=== PATIENT | male | born 1970 | race Caucasian/White ===

== ENCOUNTER 2023-10-30 19:17 | Emergency (ER) | payer OTHER, SELFPAY ==
[2023-10-30 19:34] VITALS: BP 129/82; PULSE 58; RESP 16; TEMP 37.3; O2SAT 97; BMI 33.2
--- NOTE | 2023-10-30 19:39 | ED_ITS ---
HPI - General Adult General Chief complaint: Urogenital-Male Stated complaint: back pain, ? kidneys Time Seen by Provider: 10/30/23 22:05 History of Present Illness HPI narrative: The patient is a 53-year-old male who was a disabled . He says that at some point this afternoon he realized he would pain in his left flank. He also felt that he was having trouble urinating. His pain became intense and he was sweating and extremely uncomfortable. His partner drove him up to the [facility] in [place] where he looked to try to find somebody could help him but they could not find any where to go and so then they drove to the hospital here at of despiration because of his severe pain. Just about as soon as he checked in however his pain started to subside. At the time that I saw him he was not having any ongoing discomfort at all. He was able to urinate here. He has had no fever or chills or vomiting. Related Data Allergies Allergy/AdvReac Type Severity Reaction Status Date / Time bee pollen [bee stings] Allergy Anaphylaxis Verified 10/30/23 19:36 Review of Systems 2 Review of Systems: Yes all other systems are reviewed and are negative [facility] Social History Social History Smoked in Last 30 Days: Yes Use of substances other than those prescribed or required for medical reasons: No Advance Directives: No Advance Directives Information Provided: Yes Do you have a plan to hurt others: No Plan Physical Exam ED Vital Signs: Vital Signs - 24 hr 10/30/23 19:34 10/30/23 21:46 Temperature 99.1 F 97.7 F Pulse Rate 58 66 Respiratory Rate 16 18 Blood Pressure 129/82 140/92 H Pulse Oximetry 97 98 Oxygen Delivery Method Room Air Room Air BMI result Body Mass Index 33.2 Const Other: The patient is awake, alert, pleasant, cooperative. He has not appear in any distress at the moment. HENMT Other: Face is symmetrical. Mucous membranes moist. Eyes Other: Pupils are round equal, conjunctivae are clear Neck Other: Moving his neck easily, no JVD Resp Effort & Inspection: normal respiratory effort Auscultation: clear to auscultation bilaterally Cardio Rate: regular rate Rhythm: regular rhythm Heart sounds: S1 normal heart sound present and S2 normal heart sound present GI Other: Abdomen is soft and nontender General: Yes no CVA tenderness Back/Spine/Pelvis Back: no CVA tenderness Skin Other: Skin is dry and unremarkable Neuro Other: The patient is awake, alert, oriented, appropriate. Cranial nerves are grossly intact. He moves his extremities normally. He is grossly neurologically intact. Extrem Other: No peripheral edema Course Course Course Narrative: This is a rapid medical exam performed by Oscar Geronimo NP: Additional HPI, ROS, PE not included below will be deferred to primary provider. Patient is a 53-year-old male presenting to the ED with complaint of urinary retention and back pain which began today. States only able to urinate small amounts. Pain was 9/[address], currently 6/10. Plan: UA, labs Medical Decision Making Medical Decision Making [facility] Narrative: The patient is a 53-year-old male who comes to the emergency room apparently having earlier had severe left flank pain. He has never had flank pain like that before. No history of kidney stones in the past. His pain resolved spontaneously not long after he checked into the emergency room. Labs has been done that showed a white count of 22,000. The patient had initially implied that he had had difficulty urinating but he was able to void here and a bladder scan did not show any urine retention or bladder distention. The patient was observed. He had no recurrence of pain. He continues to look clinically well. He is afebrile. His urinalysis shows a large amount of blood on dip and 6-10 red cells. Only 0-5 white cells. I suspect he does not have a UTI. His description of the episode sounds very much like an episode of left ureteral colic which spontaneously resolved. He did not wish to have any would imaging studies done in the emergency room because he gets his insurance through the [place] and he is afraid that although he initially went to a [place] [facility] (in [place] where there was no one to be found) he is concerned about generating any additional expense in case the [place] does not cover this emergency room visit. He does not have other insurance. The patient was observed and had no recurrence of symptoms. He will be discharged to contact the [place] tomorrow for additional follow up related to this episode. Lab Data 10/30/23 19:57 10/30/23 19:57 Labs: Lab Results 10/30/23 10/30/23 Range/Units 19:57 22:03 WBC 22.2 H (4.8-10.8) X10*3/uL RBC 4.85 (4.60-5.80) X10*6/uL Hgb 14.6 (14.0-18.0) g/dl Hct 43.2 (42.0-52.0) % MCV 89.1 (80.0-98.0) fL MCH 30.1 (27.0-33.0) pg MCHC 33.8 (31.0-36.0) g/dl RDW 12.9 (11.0-16.0) % Plt Count 274 (160-400) X10*3/uL MPV 10.9 (9.4-12.4) fL Immature Gran % (Auto) 0.5 H (0.0-0.4) % Neut % (Auto) 84.8 H (45-73) % Lymph % (Auto) 8.0 L (20-40) % [place] % (Auto) 5.7 (2-11) % Eos % (Auto) 0.4 (0-4) % Baso % (Auto) 0.6 (0-2) % Lymph # (Auto) 1.8 (1.2-4.9) X10*3/uL [place] # (Auto) 1.3 H (0.1-1.2) X10*3/uL Eos # (Auto) 0.1 (0.0-0.4) X10*3/uL Baso # (Auto) 0.1 (0.0-0.2) X10*3/uL Abs Immat Gran (auto) 0.11 H (0.00-0.03) X10*3/uL Absolute Neuts (auto) 18.9 H (2.0-8.3) x10*3/uL Absolute Nucleated RBC 0.000 (0.0-0.012) X10*3/uL Nucleated RBC % (auto) 0.0 (0.0-0.2) /100WBC Sodium 142 (135-145) mmol/L Potassium 4.2 (3.3-5.1) mmol/L Chloride 108 (96-108) mmol/L Carbon Dioxide 23 (22-29) mmol/L Anion Gap 15 (12-20) BUN 15 (9-16) mg/dL Creatinine 1.02 (0.5-1.4) mg/dL Estim Creat Clear Calc 96.6 Estimated GFR > 60 Random Glucose 115 (60-115) mg/dL Calcium 9.9 (8.4-10.2) mg/dL Total Bilirubin 0.2 (0.0-1.0) mg/dL AST 27 (5-37) U/L ALT 31 (0-40) U/L Alkaline Phosphatase 134 H (39-117) U/L C-Reactive Protein 3.47 H (< or = 0.50) mg/dL Total Protein 7.3 (6.5-8.0) g/dL Albumin 4.3 (3.5-5.0) g/dL Urine Color Yellow Urine Appearance Clear Urine pH 6.5 (5.0-9.0) Ur Specific [place] 1.015 (1.005-1.025) Urine Protein Trace (Neg-Trace) mg/dL Urine Glucose (UA) Negative (Negative) mg/dL Urine Ketones Trace (Negative) mg/dL Urine Blood Large (3+) H (Negative) Urine Nitrite Negative (Negative) Ur Leukocyte Esterase Small (1+) H (Negative) Urine RBC 6-10 H (0-2) /HPF Urine WBC 0-5 (0-5) /HPF Ur Squamous Epith Cells 0-2 (0-2) /HPF Urine Bacteria None Seen (None Seen) Hyaline Casts 3-5 (0-2) /LPF Discharge Plan Discharge Clinical Impression: Acute left flank pain, Hematuria Patient Disposition: Home, Self-Care Instructions: Kidney Stones (ED) Additional Instructions: It seems very likely that you had a kidney stone in your left ureter that must have passed into your bladder. Please contact your regular doctor's office at the [place] in the morning to make an appointment to follow up on this event. In the future I think if you have an acute medical problem in the [place] is not open I think you can call them to get permission to go to a private Hospital. Return to the emergency room if significantly worse. Referrals: [facility] [Provider Group] (Left flank pain presumably a left-sided kidney stone that passed spontaneously) Stand Alone Forms: Work/School Release Print Language: Spanish
[2023-10-30 20:02] LABS: MANUAL DIFF FLAG NO
[2023-10-30 20:03] LABS: Basophils Absolute Auto 0.1 X10*3/uL (0.0-0.2); Basophils Percent Auto 0.6 % (0-2); Eosinophils Absolute Auto 0.1 X10*3/uL (0.0-0.4); Eosinophils Percent Auto 0.4 % (0-4); Hematocrit 43.2 % (42.0-52.0); Hemoglobin 14.6 g/dl (14.0-18.0); Imm Gran Abs Auto 0.11 X10*3/uL (0.00-0.03); Imm Gran Pct Auto 0.5 % (0.0-0.4); Lymphocytes Absolute Auto 1.8 X10*3/uL (1.2-4.9); Mean Corpuscular HGB Conc 33.8 g/dl (31.0-36.0); Mean Corpuscular Hemoglobin 30.1 pg (27.0-33.0); Mean Corpuscular Volume 89.1 fL (80.0-98.0); Mean Platelet Volume 10.9 fL (9.4-12.4); Monocytes Absolute Auto 1.3 X10*3/uL (0.1-1.2); Monocytes Percent Auto 5.7 % (2-11); Neutrophils Absolute Auto 18.9 x10*3/uL (2.0-8.3); Neutrophils Percent Auto 84.8 % (45-73); Platelet Count 274 X10*3/uL (160-400); Red Blood Count 4.85 X10*6/uL (4.60-5.80); Red Cell Distribution Width 12.9 % (11.0-16.0); White Blood Count 22.2 X10*3/uL (4.8-10.8)
[2023-10-30 20:20] LABS: Alanine Aminotransferase 31 U/L (0-40); Albumin Level 4.3 g/dL (3.5-5.0); Alkaline Phosphatase 134 U/L (39-117); Anion Gap 15 (12-20); Aspartate Amino Transferase 27 U/L (5-37); Bilirubin Total 0.2 mg/dL (0.0-1.0); Blood Urea Nitrogen 15 mg/dL (9-16); Calcium 9.9 mg/dL (8.4-10.2); Carbon Dioxide 23 mmol/L (22-29); Chloride 108 mmol/L (96-108); Creatinine Clr Calc Pharmacy 96.6; Estimated Glomerular Filt Rate > 60; Glucose Random 115 mg/dL (60-115); Potassium 4.2 mmol/L (3.3-5.1); Sodium 142 mmol/L (135-145); Total Protein 7.3 g/dL (6.5-8.0)
[2023-10-30 21:46] VITALS: BP 140/92; PULSE 66; RESP 18; TEMP 36.5; O2SAT 98
--- NOTE | 2023-10-30 21:47 | MHC.EDTECH ---
Patient came in from the waiting room,changed into hospital attire,vitals taken. Patient ambulated to the bathroom with a steady gait to attempt to give a urine sample.
--- NOTE | 2023-10-30 22:03 | MHC.EDTECH ---
Patient gave a urine sample,bladder scanned for post void patient had nothing left in bladder,call tyson in reach
[2023-10-30 22:14] LABS: Appearance Urine Clear; Color Urine Yellow; Glucose Urine UA Negative (Negative); Leukocyte Esterase Urine Small (1+) (Negative); Nitrite Urine Negative (Negative); PH 6.5 (5.0-9.0); Specific Gravity - Urine 1.015 (1.005-1.025); UMIC TRIGGER UACC YES; Urine Blood Large (3+) (Negative); Urine Ketones Trace mg/dL (Negative); Urine Protein Trace mg/dL (Neg-Trace)
[2023-10-30 22:38] LABS: Bacteria Urine None Seen (None Seen); Squamous Epithelial Cell Urine 0-2 /HPF (0-2); UACC Culture Trigger YES; WBC Urine 0-5 /HPF (0-5)
[2023-10-30 22:54] LABS: C Reactive Protein 3.47 mg/dL (< or = 0.50)
[2023-10-30 23:31] VITALS: BP 139/72; PULSE 69; RESP 16; TEMP 36.8; O2SAT 97
== END 2023-10-30 23:32 | disposition home or self-care (01) ==
PROVIDERS: Registered Nurse Emergency; Emergency Provider Emergency Medicine
DX: R10.9 Unspecified abdominal pain (principal); R31.9 Hematuria, unspecified; R33.9 Retention of urine, unspecified
CPT/HCPCS: 36415; 80053; 81001; 85025; 86140; 87086; 99283; 99285